=== PATIENT | male | born 1990 | race Caucasian/White ===

== ENCOUNTER 2019-05-14 19:04 | Emergency (ER) | payer OTHER ==
[2019-05-14 21:05] VITALS: BP 164/79
== END 2019-05-14 21:05 | disposition home or self-care (01) | DRG 605 ==
LOC: ED 19:04
DX: S80.212A Abrasion, left knee, initial encounter (principal); M25.532 Pain in left wrist; M79.645 Pain in left finger(s); M79.632 Pain in left forearm; V43.52XA Car driver injured in collision with other type car in traffic accident, initial encounter